=== PATIENT | female | born 1970 | race Caucasian/White ===

== ENCOUNTER 2019-09-09 16:14 | Emergency (ER) | payer BC ==
[~2019-09-09 16:14] MED LIST: Iopamidol 370 76% 100 ML VIAL ONE
[2019-09-09 17:55] LABS: Hemoglobin 13.5 g/dL (12.0-16.0); Mean Corpuscular HGB CONC 34.9 g/dL (32.0-36.0); Mean Corpuscular Hemoglobin 31.3 pg (27.0-31.0); Mean Corpuscular Volume 89.5 fL (78.0-98.0); Mean Platelet Volume 6.9 fL (7.4-10.4); Platelet Count 282 thou/uL (130-400); RBC Distribution Width 12.1 % (11.5-14.5); Red Blood Cell (RBC) Count 4.31 mill/uL (4.20-5.40); White Blood Cell (WBC) Count 4.7 thou/uL (4.8-10.8)
--- NOTE | 2019-09-09 18:11 | ULT ---
Pelvic ultrasound: 09/09/2019 HISTORY: Pelvic pain, prior hysterectomy TECHNIQUE: Multiplanar grayscale sonographic imaging of the pelvis obtained with transabdominal and e ndovaginal imaging. FINDINGS: No free fluid is noted within the pelvis. Neither ovary can be visualized. The uterus is nonvisualized. Question surgical absence of the ovarie s and uterus. IMPRESSION: No free fluid noted within the pelvis.
[2019-09-09 18:13] LABS: ALT (SGPT) 26 U/L (8-55); AST (SGOT) 19 U/L (5-34); Albumin 4.7 g/dL (3.5-5.0); Alkaline Phosphatase 119 U/L (40-110); Anion Gap 10 mmol/L (10-20); BUN (Urea Nitrogen) 13 mg/dL (7.0-18.7); Bilirubin, Total 0.6 mg/dL (0.2-1.2); Calc. Creatinine Clearance 0 mL/min (70-130); Calcium 9.8 mg/dL (7.8-10.44); Carbon Dioxide 30 mmol/L (22-29); Chloride 102 mmol/L (98-107); Estimated GFR-MDRD 62; Globulin 2.9 g/dL (2.4-3.5); Glucose 97 mg/dL (70-105); Potassium 4.2 mmol/L (3.5-5.1); Protein, Total 7.6 g/dL (6.0-8.3); Sodium 138 mmol/L (136-145)
[2019-09-09 18:19] LABS: Eosinophils 1 % (0-10); Lymphocytes 47 % (21-51); MDiff Complete? YES; Monocytes 1 % (0-10); Neutrophil 31 % (42-75); Ovalocytes SLIGHT = 2-5 cells (100X) (0-1/hpf); Platelet Morphology Comment Appears Adequate; Polychromasia SLIGHT = 2-3 cells (100X) (0-2/hpf); Reactive Lymphocytes 20 % (0-10)
[2019-09-09] MEDS ORDERED: Ketorolac Tromethamine 30 MG/ML VIAL ONE (21:18)
[2019-09-09] MEDS ORDERED: Morphine 4 MG/ML VIAL ONE ×2 (21:18→22:39)
[2019-09-09 21:49] LABS: Bacteria/HPF 2+ HPF (None Seen); Bilirubin Negative (Negative); Blood, Urine Negative (Negative); Clarity Clear (Clear); Glucose, Urine (Dipstick) Normal (Negative); Leukocyte Negative Leu/uL (Negative); Nitrite 2+ (Negative); Pregnancy Test - Urine (BHCG) Negative (Negative); Protein, Urine (Dipstick) Negative (Neg-Trace); RBC/HPF 0-3 HPF (0-3); Specific Gravity 1.021 (1.002-1.036); Urobilinogen Normal mg/dL (Less than 2); WBC/HPF 0-3 HPF (0-3)
[2019-09-09 21:50] LABS: Pregu Control Background? CLEAR/WHITE (CLR/WHITE); Pregu Control Bar Appear? YES (CONTROL BAR)
--- NOTE | 2019-09-09 23:14 | CT ---
CT abdomen and pelvis: 09/09/2019 COMPARISON: None HISTORY: Pain, hiccups TECHNIQUE: Axial CT imaging at 5 mm intervals from lung bases through the pubic symphysis with IV con trast. Coronal and sagittal reformatted imaging obtained. FINDINGS: Imaged lung bases are unremarkable. The distal esophagus is dilated and fluid-filled as is the superior most aspect of the gastric fundus. At the junction of the proximal body and the fundus of the stomach there is a rounded band encircling the stomach. There is a small pulmonary nodule whic h is in the right middle lobe anteriorly, pleural based in nature, measuring 4-5 mm, of uncertain significance. No free intraperitoneal air or fluid. The liver is relatively hypodense, which may signify steatosis. The gallbladder, spleen, pancreas, ad renal glands, and kidneys appear grossly unremarkable aside from scattered areas of renal cortical thinning on the right suggesting scar. Limited assessment of the bowel without oral contrast media de monstrates a few sigmoid diverticula with no evidence for diverticulitis. No evidence for large or small bowel obstruction. The appendix is unremarkable. Vascular structures appear patent. No abdomina l or pelvic lymphadenopathy. No acute osseous abnormality is noted. Metallic fusion hardware traverses the sacroiliac joints bilaterally. There are intervertebral disc devices at L3-4 and L4-5. No acute osseous abnormality. IMPRESSION: Distal esophagus is dilated and fluid-filled as is the gastric fundus with a band which i s presumably bariatric in nature and has likely slipped distally. No acute findings are seen. Results called to Dr. Stone at 11:10 PM 09/09/2019.
== END 2019-09-09 23:33 | disposition home or self-care (01) ==
LOC: ERS 16:14
DX: R10.2 Pelvic and perineal pain (principal); M19.90 Unspecified osteoarthritis, unspecified site; E03.9 Hypothyroidism, unspecified; Z87.891 Personal history of nicotine dependence; Z79.899 Other long term (current) drug therapy
CPT/HCPCS: 36415; 74177; 76856; 80053; 81003; 81015; 81025; 85025; 96374; 96375; 96376; J1885; J2270; Q9967

== ENCOUNTER 2019-10-23 08:13 | Outpatient (CLI) | payer BC ==
--- NOTE | 2019-10-23 10:05 | CT ---
CT ABDOMEN AND PELVIS WITH CONTRAST: HISTORY: Abdominal pain. COMPARISON: CT abdomen and pelvis from 09/09/2019. FINDINGS: There is a small, 3 mm subpleural nodule in the right middle lobe, unchanged. There is contrast withi n the distal esophagus, suggesting a component of gastric reflux. There is a moderate sized gastric pouch from the Lap-Band, which has a normal phi angle. The liver, spleen and pancreas are unremarkable. The adrenal glands are unremarkable. No hydrouretero nephrosis. There is a scar of the inferior pole right kidney that may be sequela of old reflux diseas e. The aortoiliac contour is nonaneurysmal. Prior hysterectomy. No dilated loops of large or small bowel . The appendix is visualized and is normal. There is interbody fusion hardware at L3-L4 and L4-L5 with SI joint fusion hardware bilaterally from S1-S3. IMPRESSION: 1. Mild pouch dilatation proximal to the Lap-Band with reflux of contrast to the esophagus. This coul d be the source of the patient's discomfort and the Lap-Band band may have slipped. 2. No other acute inflammatory process within the abdomen or pelvis. POS: TPC
[2019-10-23] MEDS ORDERED: Iopamidol-370 76% 500 ML 1 ML ONE (15:44)
== END 2019-10-23 08:14 | disposition home or self-care (01) ==
LOC: BICCT 08:13
PROVIDERS: ATTEND Obstetrics & Gynecology
DX: R10.9 Unspecified abdominal pain (principal); K21.9 Gastro-esophageal reflux disease without esophagitis
CPT/HCPCS: 74177; Q9967

== ENCOUNTER 2020-03-02 07:18 | Observation (INO) | payer BC, OTHER ==
[2020-02-28 10:58] VITALS: BMI 27.3
[2020-02-28 14:01] LABS: Hemoglobin 12.7 g/dL (12.0-16.0); Mean Corpuscular HGB CONC 33.7 g/dL (32.0-36.0); Mean Corpuscular Hemoglobin 30.8 pg (27.0-31.0); Mean Corpuscular Volume 91.2 fL (78.0-98.0); Mean Platelet Volume 8.1 fL (7.4-10.4); Platelet Count 251 thou/uL (130-400); RBC Distribution Width 14.1 % (11.5-14.5); Red Blood Cell (RBC) Count 4.13 mill/uL (4.20-5.40); White Blood Cell (WBC) Count 3.7 thou/uL (4.8-10.8)
[2020-02-28 17:52] LABS: SARS-CoV-2 MS2 Positive; SARS-CoV-2 N Gene Negative; SARS-CoV-2 S Gene Negative; SARS-CoV-2 orf1ab Negative
[2020-03-02] MEDS ORDERED: Gabapentin 300 MG CAP ONE ×2 (08:10→08:15)
[2020-03-02] MEDS ORDERED: Famotidine 20 MG TAB ONE (08:16)
[2020-03-02] MEDS ORDERED: CeleCOXIB 100 MG CAP ONE (08:17)
[2020-03-02] MEDS ORDERED: Famotidine/PF 20 mg/2ml Vial ONE (08:17)
[2020-03-02] MEDS ORDERED: Fentanyl 100 MCG/2 ML VIAL ONE ×2 (08:47→11:04)
[2020-03-02] MEDS ORDERED: Lidocaine 1% w/Epinephrine 1:100K 20 ML VIAL ONE ×2 (08:47→09:34)
[2020-03-02] MEDS ORDERED: traMADol HCl 50 MG TAB PO PRN (10:28)
[2020-03-02] MEDS ORDERED: Bisacodyl 10 MG SUPP PR PRN (10:28)
[2020-03-02] MEDS ORDERED: Ondansetron PF 4 MG/2 ML Vial IVP PRN (10:28)
[2020-03-02] MEDS ORDERED: diphenhydrAMINE 25 MG CAP PO PRN (10:28)
[2020-03-02] MEDS ORDERED: Morphine 4 MG/ML VIAL SLOW IVP PRN (10:28)
[2020-03-02] MEDS ORDERED: Simethicone Chewable 80 MG TAB PO PRN (10:28)
[2020-03-02] MEDS ORDERED: Zolpidem Tartrate 5 MG TAB PO PRN (10:28)
--- NOTE | 2020-03-02 11:36 | OP ---
DATE OF PROCEDURE: 03/02/2020 PREOPERATIVE DIAGNOSES: 1. Symptomatic grade 2 cystocele and rectocele. 2. Genuine stress incontinence. 3. Prior hysterectomy. POSTOPERATIVE DIAGNOSES: 1. Symptomatic grade 2 cystocele and rectocele. 2. Genuine stress incontinence. 3. Prior hysterectomy. PROCEDURE PERFORMED: 1. Anterior and posterior repair. 2. Advantage Fit tension-free vaginal tape with cystoscopy. [employer] SURGEON: Jessica Jane PA-C. ANESTHESIA: General endotracheal. ESTIMATED BLOOD LOSS: 25 mL. COMPLICATIONS: None. COUNTS: Correct x2. ANTIBIOTICS: 2 g Ancef on-call to OR. FINDINGS: Post TVT placement cystoscopy, evaluation of bladder showed normal mucosa, normal trigone of the bladder. No evidence of any inadvertent trocar placement or mesh placement during the procedure. DISPOSITION: To recovery room, stable. DESCRIPTION OF PROCEDURE: The patient previously received informed consent in regard to surgery. She was taken back to the operating room, where she received a general endotracheal anesthetic agent without complications. She was placed in dorsal lithotomy position with the use of Lucius stirrups, prepped and draped in usual sterile fashion. Toussaint catheter had been placed. At this time, a weighted speculum was placed in the vagina. The edge of the vaginal cuff lines was grasped at 3 and 9 o'clock positions. The cystocele was noted, and the mucosa of the anterior vagina was infiltrated with 1% lidocaine with epinephrine. I then made a vertical incision in the mucosa approximately 2 cm distal from the urethral meatus. My assistants grabbed the edge of the vaginal mucosa and then I reduced the cystocele both sharply and bluntly. Once this was done, I then palpated the UV junction where the Toussaint bulb was palpable. Then, I found the mid urethra and 2 Allis clamps were placed superior and inferior to this. The mucosa under the urethra and under each bilateral vaginal sulci of the symphysis initial pubic ramus junctions were infiltrated with 1% lidocaine with epinephrine. Approximately, a 1.5 cm incision was made in the vaginal mucosa in the mid urethra. The edges of this mucosa were grasped with 2 Allis clamps. I then used the Metzenbaum scissors to submucosally dissect the mucosa into the junction of the ischial pubic ramus and symphysis pubis until I entered into the space of Retzius and this was performed bilaterally. Once this had been accomplished, the anticipated trocar exit sites were marked, where the mid urethra was noted to be in the midline over the symphysis pubis and then 2 cm to the right and to the left for the trocar exit points. The retropubic space had been infiltrated with 60 mL of sterile saline prior to this. We then removed the Toussaint catheter and the Toussaint guidewire catheter was then placed for deviating the bladder away from the trocar exit sites during the TVT procedure. Both the patient's legs were then brought down to the level of the knees were equal with each axilla. The TVT device with the mesh was then assembled. The trocar of the Advantage Fit TVT device was then placed through the previously dissected tunnel on the patient's left side and while my emergency room physician assistant deviated the bladder to the opposite direction with the Toussaint guide. My emergency room physician assistant then palpated the trocar in its direction of exit at the previously marked sites 2 cm lateral to the urethral meatus on the left side. The trocar pierced through the skin and the plastic component of the mesh was then grasped with a Carlos clamp and the trocar was then removed. This was then repeated on the patient's right side in likewise fashion as again deviating the bladder to the opposite direction with the guidewire and then placing the trocar through the previously tunneled space exiting through the marked spot. The trocar was then removed. At this point, I performed a cystoscopy of the bladder with a 70-degree scope. The bladder and urethra were inspected. There was no evidence of any inadvertent placement of the trocar or mesh through the bladder wall. The cystoscope was then removed. We then replaced the Toussaint catheter. A Naranjo scissors was then placed underneath the TVT mesh and it was noted to be aligned appropriately prior to setting the tension of the mesh. My emergency room physician assistant pulled each side of the mesh with equal direction and once the mesh was snugged over the Naranjo scissors, the plastic slit covers over the mesh was cut and these were removed by my emergency room physician assistant pulling upward to set the mesh tension point. The Naranjo scissors was then removed. The mucosa over the mid urethra was closed with 2 interrupted 2-0 Vicryl sutures securing hemostasis. At this time, we then further proceeded to complete the anterior repair. The endopelvic fascia was plicated with interrupted 2-0 Vicryl sutures with 3 sutures, reducing the cystocele and replicating into the pelvic fascia. The vaginal mucosa over the cystocele repair was then closed with interrupted 2-0 Vicryl incorporating some of the space. Hemostasis was confirmed. Attention was then turned to the posterior repair. The patient's legs were lifted back up more in the dorsal lithotomy position to allow for my assistants to have better operating space. The vaginal mucosa and the choice were grasped at 4 and 8 o'clock. The posterior vaginal mucosa was infiltrated with 1% lidocaine with epinephrine up to the vaginal cuff line. Then, a midline incision in the posterior vaginal mucosa was begun at the introitus and carried up to the vaginal cuff line. The edges of the vaginal mucosa were grabbed interveningly by my assistants to aid with retraction and counter traction. I then dissected the rectocele defect both sharply and bluntly. The endopelvic fascia was better developed and was able to see the torn areas. I was then able to grasp the endopelvic fascia most proximally left side to the patient's right side with a [id number] suture plicating this in the midline. Serial closure with 0 Vicryl suture in a similar technique continued. The rectocele defect was repaired in its entirety. Hemostasis in the pelvic fascial line was noted to be present. The posterior vaginal mucosa was then closed with interrupted [id number] sutures of 2-0 Vicryl's starting from the apex, which had been tagged, incorporating some of the endopelvic fashion and working towards the vaginal introitus. Once this was completed, a moistened Kerlix was placed in the vagina for added hemostasis. The patient was then awakened from anesthesia and will be transferred to recovery room in stable condition. Job ID: [id number]
[2020-03-02] MEDS ORDERED: Dexamethasone 20 MG/5 ML VIAL ONE (11:55)
[2020-03-02] MEDS ORDERED: Succinylcholine Chloride 20 MG/ML 10 ml SYRINGE FS ONE (11:55)
[2020-03-02] MEDS ORDERED: Ondansetron PF 4 MG/2 ML Vial ONE (11:55)
[2020-03-02] MEDS ORDERED: Lidocaine 1% PF 5 ML VIAL ONE (11:55)
[2020-03-02] MEDS ORDERED: Rocuronium Bromide 10 MG/ML (10ML VIAL) ONE (11:55)
[2020-03-02] MEDS ORDERED: PROPOFOL 200 MG/20 ML VIAL ONE (11:55)
[2020-03-02] MEDS: Ketorolac Tromethamine 30 MG/ML VIAL IVP SCH ×3 (12:33→23:51)
[2020-03-02] MEDS: Metoclopramide HCl 10 MG TAB PO SCH (21:32)
[2020-03-02] MEDS: traMADol HCl 50 MG TAB PO PRN (21:33)
[2020-03-03 05:37] LABS: Hemoglobin 11.4 g/dL (12.0-16.0); Mean Corpuscular HGB CONC 33.1 g/dL (32.0-36.0); Mean Corpuscular Hemoglobin 30.3 pg (27.0-31.0); Mean Corpuscular Volume 91.6 fL (78.0-98.0); Mean Platelet Volume 8.3 fL (7.4-10.4); Platelet Count 213 thou/uL (130-400); RBC Distribution Width 13.9 % (11.5-14.5); Red Blood Cell (RBC) Count 3.76 mill/uL (4.20-5.40); White Blood Cell (WBC) Count 8.3 thou/uL (4.8-10.8)
[2020-03-03] MEDS ORDERED: Levothyroxine 150 MCG TAB PO SCH (06:00)
--- NOTE | 2020-03-03 07:51 | PDOC.EVN ---
Event Note - Event Note Event Note: S:Good pain control. Tolerating diet. O:afss..hct 34.5.. abd: SOFT. TROCHAR SITE FROM TVT INTACT. MINIMAL BRUISING. PERINEUM HEMOSTATIC. A/P: POST OP DAY 1 FROM A&P WITH RETROPUBIC TVT. DOING WELL. VOIDING TRIALS. ANTICIPATE DISCHARGE TODAY. HAS F/U 3 WEEKS.
[2020-03-03] MEDS: Metoclopramide HCl 10 MG TAB PO SCH (08:30)
[2020-03-03] MEDS ORDERED: CeleCOXIB 100 MG CAP PO SCH (09:00)
[2020-03-03] MEDS ORDERED: Folic Acid 1 MG TAB PO SCH (09:00)
[2020-03-03 11:37] VITALS: BP 116/60; TEMP 98
[2020-03-03] MEDS: traMADol HCl 50 MG TAB PO PRN (11:56)
--- NOTE | 2020-03-04 03:23 | DIS ---
DATE OF ADMISSION: 03/02/2020 DATE OF DISCHARGE: 03/03/2020 DIAGNOSES: Cystocele with rectocele and genuine stress incontinence. PROCEDURE PERFORMED: Anterior and posterior repair with Advantage Fit TVT and cystoscopy. SUMMARY OF HOSPITAL COURSE: Ms. Lal is a 49-year-old white female with previous hysterectomy, who had symptomatic pelvic prolapse with stress incontinence and underwent an A and P procedure with Advantage Fit TVT with cystoscopy on March 02. Postoperatively, the patient has done well. Her vital signs have been stable. Her postoperative hematocrit was 34.5%. She had good pain control with nonsteroidal pain management. Her postvoid residuals on postop day one were less than 100 mL at 60 and 44 respectively with voids of over 200 plus mL of urine. She was discharged home the afternoon of postop day #1 she is to continue using Celebrex 200 mg b.i.d. for pain control and also tramadol as needed. She has a followup in three weeks. Job ID: [id number]
== END 2020-03-03 12:30 | disposition home or self-care (01) ==
LOC: SDC 07:18 → 3SE 11:53 → SDC 18:57 → 3SE 18:58
PROVIDERS: ADMIT Obstetrics & Gynecology; ATTEND Obstetrics & Gynecology
PROC: 0JQC0ZZ Repair Pelvic Region Subcutaneous Tissue and Fascia, Open Approach (ICD-10-PCS; principal; 2020-03-02)
PROC: 0JQC0ZZ Repair Pelvic Region Subcutaneous Tissue and Fascia, Open Approach (ICD-10-PCS; 2020-03-02)
PROC: 0TSD0ZZ Reposition Urethra, Open Approach (ICD-10-PCS; 2020-03-02)
DX: N81.10 Cystocele, unspecified (principal); N81.6 Rectocele; N39.3 Stress incontinence (female) (male); N81.89 Other female genital prolapse; Z79.899 Other long term (current) drug therapy; Z90.710 Acquired absence of both cervix and uterus
CPT/HCPCS: 85027; 86850; 86900; 86901; 87635; 96374; 96376; C1781; G0378; J0690; J1100; J1885; J2001; J2270; J2405; J2704; J3010; S0028; U0003

== ENCOUNTER 2022-04-15 08:51 | Outpatient (CLI) | payer BC ==
[2022-04-15] MEDS ORDERED: Iopamidol-370 76% 500 ML 1 ML ONE (14:06)
== END 2022-04-15 08:52 | disposition home or self-care (01) ==
LOC: RAD 08:51
PROVIDERS: ATTEND Urology
DX: N39.0 Urinary tract infection, site not specified (principal); N28.89 Other specified disorders of kidney and ureter; R10.2 Pelvic and perineal pain; R35.0 Frequency of micturition; R35.1 Nocturia
CPT/HCPCS: 51600; 74455; 76770; Q9967